=== PATIENT | female | born 1995 | race Caucasian/White ===

== ENCOUNTER 2022-01-17 14:46 | Outpatient (CLI) | payer OTHER ==
[2022-01-17 15:13] LABS: ALT (SGPT) 13 U/L (8-55); AST (SGOT) 17 U/L (5-34); Albumin 4.4 g/dL (3.5-5.0); Alkaline Phosphatase 75 U/L (40-110); Anion Gap 13 mmol/L (10-20); BUN (Urea Nitrogen) 18 mg/dL (7.0-18.7); Bilirubin, Total 0.4 mg/dL (0.2-1.2); Calc. Creatinine Clearance 0 mL/min (70-130); Calcium 9.1 mg/dL (7.8-10.44); Carbon Dioxide 23 mmol/L (22-29); Cardiac Risk 2.6 (Less than 4.5); Chloride 107 mmol/L (98-107); Cholesterol 175 mg/dl (< 200 Desired); Estimated GFR 103; Globulin 3.5 g/dL (2.4-3.5); Glucose 78 mg/dL (70-105); HDL Cholesterol 67 mg/dL (>60 Neg Risk); LDL Cholesterol, Calculated 98 mg/dL; Potassium 4.3 mmol/L (3.5-5.1); Protein, Total 7.9 g/dL (6.0-8.3); Sodium 139 mmol/L (136-145); Triglycerides 52 mg/dL (Less than 150)
[2022-01-17 16:16] LABS: #Monocytes 0.3 thou/uL (0.11-0.59); #Neutrophils 2.4 thou/uL (1.40-6.50); %Eosinophils 0.9 % (0.0-10.0); %Lymphocytes 41.4 % (21.0-51.0); %Monocytes 6.4 % (0.0-10.0); %Neutrophils 50.4 % (42.0-75.0); Mean Corpuscular HGB CONC 29.9 g/dL (32.0-36.0); Mean Corpuscular Hemoglobin 24.7 pg (27.0-31.0); Mean Corpuscular Volume 82.6 fL (78.0-98.0); Mean Platelet Volume 11.9 fL (7.4-10.4); Platelet Count 213 thou/uL (130-400); RBC Distribution Width 14.1 % (11.5-14.5); Red Blood Cell (RBC) Count 5.27 mill/uL (4.20-5.40); White Blood Cell (WBC) Count 4.8 thou/uL (4.8-10.8)
[2022-01-17 16:17] LABS: Anisocytosis SLIGHT = 6-15 cells (100X) (0-5/hpf); Hypochromia SLIGHT = 6-15 cells (100X) (0-5/hpf); MDiff Complete? YES; Platelet Morphology Comment Appears Adequate
[2022-01-17 22:40] LABS: Hemoglobin A1c 5.3 % (4.0-6.0)
[2022-01-17 23:00] LABS: HIV (1/2) Antibody/Antigen Non-Reactive (NonReactive); HIV 1/2 INDEX 0.18 S/CO (<1.00); Vitamin D, 25 Hydroxy 40.2 ng/ml (> 30.0)
== END 2022-01-17 14:47 | disposition home or self-care (01) ==
LOC: MADLABBHPM 14:46 → MADLAB 14:47
PROVIDERS: ATTEND Family Medicine
DX: Z01.419 Encounter for gynecological examination (general) (routine) without abnormal findings (principal)
CPT/HCPCS: 80053; 80061; 82306; 83036; 85025; 87389

== ENCOUNTER 2024-03-25 21:02 | Emergency (ER) | payer OTHER ==
[2024-03-25] MEDS ORDERED: Ibuprofen 800 MG TAB ONE (21:19)
[2024-03-25] MEDS ORDERED: Boostrix 0.5 ML (Tdap) VIAL (>/=7 yrs of age) ONE (21:20)
[2024-03-25] MEDS ORDERED: Lidocaine 1% (PF) 30 ML VIAL ONE (21:22)
[2024-03-25] MEDS ORDERED: Ondansetron ODT 4 MG TAB ONE (21:37)
[2024-03-25] MEDS ORDERED: Morphine 4 MG/ML VIAL ONE (21:37)
[2024-03-25] MEDS ORDERED: CEFAZOLIN 2 GM VIAL ONE (22:49)
[2024-03-25] MEDS ORDERED: Sterile Water 10 ML ONE (22:50)
[2024-03-25] MEDS ORDERED: HYDROcodone/Acetaminophen 10/325 mg Tablet ONE (23:09)
== END 2024-03-25 23:20 | disposition short-term general hospital (02) ==
LOC: MADERS 21:02
DX: S60.352A Superficial foreign body of left thumb, initial encounter (principal); Z23 Encounter for immunization; W27.3XXA Contact with needle (sewing), initial encounter
CPT/HCPCS: 64450; 90471; 90715; 96372; J2272; Q0162